=== PATIENT | female | born 1930 | race Asian ===

== ENCOUNTER 2018-08-12 10:33 | Emergency (ER) | payer MEDICARE, MEDICAID ==
[2018-08-12] MEDS ORDERED: Lactated Ringer 1,000 ML IV ONE (10:54)
[2018-08-12 11:36] LABS: % BASOPHILS 0.5 % (0.0-2.0); % EOSINOPHILS 0.8 % (0.0-5.0); % LYMPHOCYTES 16.4 % (20.0-50.0); % MONOCYTES 8.5 % (2.0-10.0); % NEUTROPHILS 73.8 % (40.0-80.0); BASOPHILE ABSOLUTE 0.1 Th/cumm (0-0.2); EOSINOPHILE ABSOLUTE 0.1 Th/cmm (0.1-0.4); HEMATOCRIT 25.6 % (41.0-60); HEMOGLOBIN 8.4 gm/dL (12-16); LYMPHOCYTE ABSOLUTE 1.9 Th/cmm (1.5-3.0); MEAN CELL VOLUME 80.4 fl (81-100); MEAN CORPUSCULAR HEMOGLOBIN 26.5 pg (27.0-31.0); MEAN CORPUSCULAR HGB CONC 32.9 pg (28.0-36.0); MEAN PLATELET VOLUME 6.9 fl; NEUTROPHILE ABSOLUTE 8.5 Th/cmm (1.8-8.0); PLATELET COUNT 387 Th/cmm (150-400); RED BLOOD COUNT 3.18 Mil/cmm (3.80-5.20); RED CELL DISTRIBUTION WIDTH 16.8 % (11.5-20.0); WHITE BLOOD COUNT 11.6 Th/cmm (4.8-10.8)
[2018-08-12 11:39] LABS: INR 1.02 (0.5-1.4); PROTHROMBIN TIME (TEST) 10.6 SECONDS (9.5-11.5)
[2018-08-12 11:43] LABS: ALB/GLOB RATIO 0.7 (1.0-1.8); ALBUMIN 3.4 gm/dL (3.7-5.3); ALKALINE PHOSPHATASE 45 U/L (34-104); ANION GAP 15.3 (7.0-16.0); BILIRUBIN,TOTAL 0.4 mg/dL (0.3-1.0); BUN - UREA NITROGEN 34 mg/dL (7-25); CALCIUM SERUM 9.4 mg/dL (8.6-10.3); CARBON DIOXIDE 20.8 mEq/L (21.0-31.0); CHLORIDE 100 mEq/L (98-107); CREATININE - SERUM 1.2 mg/dL (0.6-1.2); GLUCOSE 109 mg/dL (70-105); MAGNESIUM 1.9 mg/dL (1.9-2.7); PHOSPHOROUS 2.6 mg/dL (2.5-5.0); POTASSIUM SERUM 4.1 mEq/L (3.5-5.1); SGOT 12 U/L (13-39); SGPT/ALT 7 U/L (7-52); SODIUM SERUM 132 mEq/L (136-145); TOTAL PROTEIN,SERUM 8.1 gm/dL (6.0-8.3)
--- NOTE | 2018-08-12 11:48 | Diagnostic Imaging Report ---
CT scan of the brain without intravenous contrast HISTORY: Trauma Total DLP equals 651 CTDI equals 34.8 Axial sections were obtained from the base of the skull to the vertex. There is prominence/enlargement of the ventricular system size. Associated enlargement of cerebral sulci and subarachnoid cisterns. Findings are consistent with changes of generalized cerebral atrophy. No acute parenchymal abnormalities. No acute cerebral hemorrhage. Hypodensity is seen within the supratentorial white matter regions without mass effect. The findings may be associated with chronic small vessel ischemic disease. No extra-axial masses or abnormal fluid collections. Mild sinusitis IMPRESSION: 1. No acute abnormalities 2. Cerebral atrophy 3. Supratentorial white matter changes that may reflect chronic small vessel ischemic disease
[2018-08-12 12:18] LABS: URINE BILIRUBIN NEGATIVE (NEGATIVE); URINE BLOOD LARGE (NEGATIVE); URINE GLUCOSE (UA) NEGATIVE (NEGATIVE); URINE KETONE NEGATIVE (NEGATIVE); URINE LEUKOCYTE ESTERASE MODERATE (NEGATIVE); URINE MICROSCOPIC INDICATED? YES; URINE PH 6.5 (4.6 - 8.0); URINE PROTEIN >=300 mg/dL (NEGATIVE); URINE SOURCE CATH; URINE UROBILINOGEN 0.2 E.U./dL (0.2 - 1.0)
[2018-08-12 12:34] LABS: URINE CLARITY CLOUDY (CLEAR); URINE COLOR DARK BROWN; URINE NITRATE NEGATIVE (NEGATIVE)
[2018-08-12 12:37] LABS: URINE BACTERIA 2+ /hpf (NONE SEEN); URINE EPITHELIAL CELLS FEW /lpf (FEW); URINE RBC >100 /hpf (0-5)
[2018-08-12 12:39] LABS: URINE WBC 50-100 /hpf (0-5)
--- NOTE | 2018-08-12 13:21 | ED Physician Chart ---
ED Chief Complaint/HPI - Patient Information Date Seen:: 08/12/18 Time Seen:: 10:49 Chief Complaint:: weakness and fever s/p fall History of Present Illness:: weakness and fever. Temperature was initially 99.7 degrees and then increased to 100.3 degrees. Patient fell yesterday and hit her left head. No loss of consciousness. Allergies:: Allergies Allergy/AdvReac Type Severity Reaction Status Date / Time gardan Allergy Uncoded 08/12/18 10:48 Vitals:: Vital Signs - 8 hr 08/12/18 08/12/18 10:49 11:54 Temp 99.7 F 100.3 F HR 91 83 RR 21 21 BP 137/81 122/48 O2 Sat % 100 99 Historian:: Family Member Review:: Nurse's Note Reviewed ED Review of Systems - Review of Systems General/Constitutional: Fever, No chills, No weight loss, Weakness, No diaphoresis, No edema, No loss of appetite Skin: No skin lesions, No rash, No bruising Head: No headache, No light-headedness Eyes: No loss of vision, No pain, No diplopia ENT: No earache, No nasal drainage, No sore throat, No tinnitus Neck: No neck pain, No swelling, No thyromegaly, No stiffness, No mass noted Cardio Vascular: No chest pain, No palpitations, No PND, No orthopnea, No edema Pulmonary: No SOB, No cough, No sputum, No wheezing GI: No nausea, No vomiting, No diarrhea, No pain, No melena, No hematochezia, No constipation, No hematemesis G/U: No dysuria, No frequency, No hematuria Musculoskeletal: No bone or joint pain, No back pain, No muscle pain Endocrine: No polyuria, No polydipsia Psychiatric: No prior psych history, No depression, No anxiety, No suicidal ideation Hematopoietic: No bruising, No lymphadenopathy Allergic/Immuno: No urticaria, No angioedema Neurological: No syncope, No focal symptoms, No weakness, No paresthesia, No headache, No seizure, No dizziness, No confusion, No vertigo ED Past Medical History - Past Medical History Obtainable: No Past Medical History: HTN, DM, CAD, Dyslipidemia, Other (hematuria) Family Medical History - Family Member Maternal History Unknown: Yes Ethnicity: Non- Living Status: Hx Family Cancer: No Hx Family Coronary Artery Disease: Yes Hx Family Congestive Heart Failure: Yes Hx Family Hypertension: Yes Hx Family Stroke: Yes Hx Family Diabetes: Yes (mother) Hx Family Seizures: No Hx Family Dementia: No Hx Family AIDS: No Hx Family HIV: No Hx Family COPD: No Hx Family Hepatitis: No Hx Family Psychiatric Problems: No Hx Family Tuberculosis: No ED Physical Exam - Physical Examination General/Constitutional: Well-developed, well-nourished, Alert Other Gen/Cons comments:: pale-appearing female. Other Head comments:: left parietal tenderness without step off and with minimal swelling. Eyes: Lids, conjuctiva normal, PERRL, EOMI Skin: Nl inspection Other Skin comments:: extremely dry oral mucosa without a drop of saliva on the tongue. Neck: Nontender, Full ROM w/o pain, No nuchal rigidity, No stridor Respiratory: Nl effort/Exclusion, No Wheeze/Rhonchi/Rales Other Respiratory comments:: slight decrease in breath sounds at lung bases. Cardio Vascular: RRR, No murmur, gallop, rubs, NL S1 S2 GI: No tenderness/rebounding/guarding, No organomegaly, No hernia, Normal BS's, Nondistended, No mass/bruits, No McBurney tenderness : No CVA tenderness Extremities: No tenderness or effusion, Full ROM, normal strength in all extremities, No edema, Normal digits & nails Neuro/Psych: Alert/oriented, Normal sensory exam, Normal motor strength, Judgement/insight normal, Mood normal, No focal deficits Misc: Normal back, No paraspinal tenderness ED Labs/Radiology/EKG Results - Lab Results Results: Laboratory Tests 08/12/18 08/12/18 08/12/18 11:16 11:16 11:16 WBC 11.6 H RBC 3.18 L Hgb 8.4 L Hct 25.6 L MCV 80.4 L MCH 26.5 L MCHC Differential 32.9 RDW 16.8 Plt Count 387 MPV 6.9 Neutrophils % 73.8 Lymphocytes % 16.4 L Monocytes % 8.5 Eosinophils % 0.8 Basophils % 0.5 PT INR PTT (Actin FS) Sodium 132 L Potassium 4.1 Chloride 100 Carbon Dioxide 20.8 L Anion Gap 15.3 BUN 34 H Creatinine 1.2 Est GFR ( Amer) TNP Est GFR (Non-Af Amer) TNP BUN/Creatinine Ratio 28.3 Glucose 109 H Calcium 9.4 Phosphorus 2.6 Magnesium 1.9 Total Bilirubin 0.4 AST 12 L ALT 7 Alkaline Phosphatase 45 B-Natriuretic Peptide Total Protein 8.1 Albumin 3.4 L Globulin 4.7 Albumin/Globulin Ratio 0.7 L TSH 2.28 Urine Source Urine Color Urine Clarity Urine pH Ur Specific [place] Urine Protein Urine Glucose (UA) Urine Ketones Urine Blood Urine Nitrate Urine Bilirubin Urine Urobilinogen Ur Leukocyte Esterase Urine RBC Urine WBC Ur Epithelial Cells Urine Bacteria Hyaline Casts Coarse Granular Casts 08/12/18 08/12/18 08/12/18 11:16 11:34 12:10 WBC RBC Hgb Hct MCV MCH MCHC Differential RDW Plt Count MPV Neutrophils % Lymphocytes % Monocytes % Eosinophils % Basophils % PT 10.6 INR 1.02 PTT (Actin FS) 27.7 Sodium Potassium Chloride Carbon Dioxide Anion Gap BUN Creatinine Est GFR ( Amer) Est GFR (Non-Af Amer) BUN/Creatinine Ratio Glucose Calcium Phosphorus Magnesium Total Bilirubin AST ALT Alkaline Phosphatase B-Natriuretic Peptide 934.0 H Total Protein Albumin Globulin Albumin/Globulin Ratio TSH Urine Source CATH Urine Color DARK BROWN Urine Clarity CLOUDY H Urine pH 6.5 Ur Specific [place] 1.020 Urine Protein >=300 Urine Glucose (UA) NEGATIVE Urine Ketones NEGATIVE Urine Blood LARGE H Urine Nitrate NEGATIVE Urine Bilirubin NEGATIVE Urine Urobilinogen 0.2 Ur Leukocyte Esterase MODERATE H Urine RBC >100 H Urine WBC 50-100 H Ur Epithelial Cells FEW Urine Bacteria 2+ H Hyaline Casts 2-5 H Coarse Granular Casts 2-5 H ED Assessment - Assessment General Assessment: Yolande instructed me that the insurance company wants to transfer the patient if she is stable to do so. Told this to me at 12:30 p.m. Patient was sent here by Dr. Pressley. I will call him after I find out if the patient is to be transferred to another facility based on insurance request. CXR per my reading: NAD. spoke to Dr. Higgins of patient's insurance company, [employer], [employer], [employer] who wanted me to give the patient fluid and discharge her. I told him that I was not going to do this since she had a leukocytosis and her temperature was increasing from 99.7 degrees to 100.3 degrees and that she was markedly dehydrated. I told him that if he wanted to do that, we would transfer the patient to him so that he could manage the patient the way he saw fit. AT THAT, Dr. Higgins raised his voice and became quite angry and said, "Fine, just transfer her. Just transfer her." I couldn't get a word in edgewise since he was so rude and abrupt. I tried to ask him where he wanted the patient [facility]. [facility] PER INSURANCE REQUEST, DR. HIGGINS INSISTS ON TRANSFER OF THIS PATIENT TO [facility]. after getting off the phone with Dr. Higgins, the temperature was rechecked temporally and is now 103.2 degrees. Yolande called the property insurance agent back to let her know. I updated Dr. Pressley on everything. ED Septic Shock - . Is Septic Shock (SBP<90, OR Lactate>4 mmol\\L) present?: No - <6hrs of presentation: Vital Signs: Vital Signs - 8 hr 08/12/18 08/12/18 10:49 11:54 Temp 99.7 F 100.3 F HR 91 83 RR 21 21 BP 137/81 122/48 O2 Sat % 100 99 ED Reassessment (Disposition) - Reassessment Reassessment Condition:: Worsened - Diagnosis Diagnosis:: Fever Urinary tract infection Dehydration Anemia ? possibly due to hematuria? Hematuria Elevated BNP (patient looks dry though) - Patient Disposition Discharge/Transfer:: Acute Care (other hosp) Condition at Disposition:: Stable
[2018-08-12] MEDS ORDERED: Piperacillin Sodium/Tazobact 3.375 gm Vial IV ONE (13:25)
--- NOTE | 2018-08-13 07:48 | Diagnostic Imaging Report ---
CHEST X-RAY: AP view INDICATION: Fever and decreased breath sounds COMPARISON: Chest x-ray on 03/07/2013 FINDINGS: There is a chronic left pleural effusion. Chronic lung changes are noted. Cardiomegaly is noted with atherosclerosis. Degenerative changes of the spine are noted. IMPRESSION: Chronic left pleural effusion as similar findings were seen on prior exam. No focal consolidation identified. No evidence of brian CHF. Cardiomegaly and atherosclerotic vascular disease.
== END 2018-08-12 15:37 | disposition short-term general hospital (02) ==
LOC: ER 10:33
DX: E86.0 Dehydration (principal); N39.0 Urinary tract infection, site not specified; R79.89 Other specified abnormal findings of blood chemistry; S09.90XA Unspecified injury of head, initial encounter; I10 Essential (primary) hypertension; E11.9 Type 2 diabetes mellitus without complications; I25.10 Atherosclerotic heart disease of native coronary artery without angina pectoris; E78.5 Hyperlipidemia, unspecified; Z91.048 Other nonmedicinal substance allergy status; W01.198A Fall on same level from slipping, tripping and stumbling with subsequent striking against other object, initial encounter; Y93.89 Activity, other specified; Y92.89 Other specified places as the place of occurrence of the external cause; Y99.8 Other external cause status
CPT/HCPCS: 99285; 96365; 71045; 70450; 83880; 36415; 84443; 85025; 85610; 87086; 81001; 83735; 84100; 80053; 87040 ×2; J2543; Z7610